=== PATIENT | female | born 1960 | race Hispanic/Latino ===

== ENCOUNTER 2017-08-31 12:20 | Outpatient (CLI) | payer BC | END 2017-08-31 12:21 | disposition home or self-care (01) | LOC: BICMAMMO 12:20 | PROVIDERS: ATTEND Internal Medicine | DX: Z12.31 Encounter for screening mammogram for malignant neoplasm of breast (principal) | CPT/HCPCS: 77063; 77067 ==

== ENCOUNTER 2018-08-31 14:29 | Outpatient (CLI) | payer BC ==
--- NOTE | 2018-08-31 15:10 | BD ---
BONE DENSITOMETRY USING DEXA: Date: 08/31/18 HISTORY: Postmenopausal screening for osteoporosis. FINDINGS: Lumbar Spine: BMD (g/cm2) L1 0.749 T-Score: -2.2 Z-Score: -1.1 L2 0.834 T-Score: -1.8 Z-Score: -0.6 L3 0.807 T-Score: -2.5 Z-Score: -1.3 L4 0.740 T-Score: -2.9 Z-Score: -1.6 L1-L4 0.782 T-Score: -2.4 Z-Score: -1.2 Femoral Neck: 0.721 T-Score: -1.2 Z-Score: 0.2 Total Femur: 0.900 T-Score: -0.3 Z-Score: 0.4 There has been interval reduction of 20.7% in the bone mineral density of the lumbar spine and a redu ction of 10.4% in the bone mineral density of the proximal femur since 12/05/08. IMPRESSION: Osteopenia. POS: [facility]
--- NOTE | 2018-08-31 15:34 | MMO ---
Bilateral MAMMO Bilat Screen [facility]. CLINICAL HISTORY: Patient is 57 years old and is seen for screening. The patient has no family history of breast cancer. The patient has no personal history of cancer. VIEWS: The views performed were: bilateral craniocaudal with tomosynthesis and bilateral mediolateral oblique with tomosynthesis. FILMS COMPARED: The present examination has been compared to prior imaging studies performed at [facility] on 06/27/2013, 07/02/2014, 08/22/2015, 08/24/2016 and 08/31/2017. MAMMOGRAM FINDINGS: The breasts are heterogeneously dense, which could obscure a lesion on mammography. There are stable benign appearing calcifications seen in both breasts. There are no suspicious masses, suspicious calcifications, or new areas of architectural distortion. IMPRESSION: THERE IS NO MAMMOGRAPHIC EVIDENCE OF MALIGNANCY. A ROUTINE FOLLOW-UP MAMMOGRAM IN 1 YEAR IS RECOMMENDED. THE RESULTS OF THIS EXAM WERE SENT TO THE PATIENT. ACR BI-RADS Category 2 - Benign finding MAMMOGRAPHY NOTE: 1. A negative mammogram report should not delay a biopsy if a dominant of clinically suspicious mass is present. 2. Approximately 10% to 15% of breast cancers are not detected by mammography. 3. Adenosis and dense breasts may obscure an underlying neoplasm.
== END 2018-08-31 14:30 | disposition home or self-care (01) ==
LOC: BICMAMMO 14:29
PROVIDERS: ATTEND Internal Medicine
DX: Z12.31 Encounter for screening mammogram for malignant neoplasm of breast (principal); M81.0 Age-related osteoporosis without current pathological fracture; M85.89 Other specified disorders of bone density and structure, multiple sites
CPT/HCPCS: 77063; 77067; 77080

== ENCOUNTER 2018-09-01 15:21 | Outpatient (CLI) | payer BC ==
--- NOTE | 2018-09-01 16:33 | ULT ---
US Pelvic Transvag W Doppler HISTORY:Enlarged uterus, evaluation for fibroids COMPARISON: None. FINDINGS: Real-time imaging of the pelvis was obtained transabdominally as well as within the endovag inal probe. The uterus is very heterogeneous in appearance. There are uterine fibroids present. The largest on the right side measures 3.8 cm and on the left approximately 2 cm. The uterus measures antolin roximately 6 cm in length and 2.3 x 2.7 cm in AP and transverse dimension. Endometrium does not appear thickened it is in the 5 mm range. The right ovary is not definitely visualized. Left ovary is also difficult to visualize but appears t o be normal in appearance. Doppler evaluation with spectral analysis: Normal flow shown in the left adnexal region. IMPRESSION: Uterine fibroids.
== END 2018-09-01 15:22 | disposition home or self-care (01) ==
LOC: BICULT 15:21
PROVIDERS: ATTEND Internal Medicine
DX: D25.9 Leiomyoma of uterus, unspecified (principal); M81.0 Age-related osteoporosis without current pathological fracture
CPT/HCPCS: 76856

== ENCOUNTER 2020-08-26 08:20 | Outpatient (CLI) | payer BC | END 2020-08-26 08:21 | disposition home or self-care (01) | LOC: BICMAMMO 08:20 | PROVIDERS: ATTEND Internal Medicine | DX: M81.0 Age-related osteoporosis without current pathological fracture (principal); M85.89 Other specified disorders of bone density and structure, multiple sites | CPT/HCPCS: 77080 ==

== ENCOUNTER 2020-09-02 13:31 | Outpatient (CLI) | payer BC | END 2020-09-02 13:32 | disposition home or self-care (01) | LOC: ULT 13:31 | PROVIDERS: ATTEND Internal Medicine | DX: D25.9 Leiomyoma of uterus, unspecified (principal) | CPT/HCPCS: 76856 ==

== ENCOUNTER 2021-12-08 07:54 | Outpatient (CLI) | payer BC | END 2021-12-08 07:55 | disposition home or self-care (01) | LOC: BICMAMMO 07:54 | PROVIDERS: ATTEND Internal Medicine | DX: Z12.31 Encounter for screening mammogram for malignant neoplasm of breast (principal) | CPT/HCPCS: 77063; 77067 ==

== ENCOUNTER 2022-12-14 08:28 | Outpatient (CLI) | payer BC | END 2022-12-14 08:29 | disposition home or self-care (01) | LOC: BICMAMMO 08:28 | PROVIDERS: ATTEND Internal Medicine | DX: Z12.31 Encounter for screening mammogram for malignant neoplasm of breast (principal); M81.0 Age-related osteoporosis without current pathological fracture | CPT/HCPCS: 77063; 77067; 77080 ==